=== PATIENT | female | born 1960 | race Caucasian/White ===

== ENCOUNTER 2016-06-02 21:17 | Emergency (ER) | payer BC ==
[~2016-06-02] VITALS: Ht 170.2 cm; Wt 55.0 kg
[2016-06-02 21:20] VITALS: BP 113/77; PULSE 56; RESP 20; TEMP 98.4; O2SAT 97
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
[2016-06-02] MEDS ORDERED: SODIUM CHLOR 0.9% 1000 ML INJ 1,000 ML IV ONE (22:00)
[2016-06-02] MEDS ORDERED: MORPHINE SULFATE 4 MG/ML INJ IV PUSH ONE (22:00)
[2016-06-02] MEDS ORDERED: ONDANSETRON HCL 4 MG/2 ML VIAL IV ONE (22:00)
[2016-06-02] MEDS ORDERED: PROPOFOL 500 MG/50 ML INJ 50 ML ONE (22:03)
[2016-06-02 22:14] VITALS: O2SAT 96; O2SAT 98
[2016-06-02] MEDS ORDERED: PROPOFOL 200 MG/20 ML AMP IV ONE (22:15)
[2016-06-02 22:20] VITALS: BP 118/67; PULSE 71; RESP 18; O2SAT 99
[2016-06-02 22:20] LABS: AUTOMATED NEUTROPHIL # 6.3 TH/MM3 (1.8-7.7); BASOPHIL % 0.5 % (0.0-2.0); EOSINOPHIL # 0.1 TH/MM3 (0-0.4); EOSINOPHIL % 0.7 % (0.0-4.0); HEMATOCRIT 37.4 % (35.0-46.0); HEMO FLAGS DIFF FINAL; LYMPH % 12.5 % (9.0-44.0); MEAN CELL VOLUME 92.8 FL (80.0-100.0); MEAN CORPUSCULAR HEMOGLOBIN 30.2 PG (27.0-34.0); MEAN CORPUSCULAR HGB CONC 32.6 % (32.0-36.0); MONO % 3.9 % (0.0-8.0); NEUT % 82.4 % (16.0-70.0); PLATELET COUNT 263 TH/MM3 (150-450); RED BLOOD COUNT 4.03 MIL/MM3 (4.00-5.30); RED CELL DISTRIBUTION WIDTH 13.5 % (11.6-17.2); WHITE BLOOD COUNT 7.6 TH/MM3 (4.0-11.0)
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
[2016-06-02 22:36] LABS: BICARBONATE 28.5 MEQ/L (21.0-32.0); POTASSIUM 4.4 MEQ/L (3.5-5.1)
[2016-06-02 22:46] VITALS: BP 129/69; PULSE 63; RESP 18; O2SAT 96
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
[2016-06-02] MEDS ORDERED: NAPR1TAB34 PO (22:58)
[2016-06-02 23:19] VITALS: BP 110/78
== END 2016-06-02 23:56 | disposition home or self-care (01) ==
LOC: NEPC 21:17
DX: S43.014A Anterior dislocation of right humerus, initial encounter (principal); V18.0XXA Pedal cycle driver injured in noncollision transport accident in nontraffic accident, initial encounter; Y93.55 Activity, bike riding; Y92.9 Unspecified place or not applicable; Y99.9 Unspecified external cause status
CPT/HCPCS: 23650; 73030; 80048; 85025; 96361; 96374; 96375; 99152; 99283; J2270; J2405; J7030

== ENCOUNTER 2016-06-05 08:34 | Emergency (ER) | payer BC ==
[~2016-06-05] VITALS: Ht 172.7 cm; Wt 70.2 kg
[~2016-06-05 08:34] MED LIST: NAPR1TAB34 PO
[2016-06-05 08:49] VITALS: BP 133/73; PULSE 51; RESP 16; TEMP 99.2; O2SAT 98
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
[2016-06-05] MEDS ORDERED: PROPOFOL 200 MG/20 ML AMP IV ONE (09:45)
[2016-06-05] MEDS ORDERED: SODIUM CHLOR 0.9% 1000 ML INJ 1,000 ML IV ONE (10:00)
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
[2016-06-05 10:30] VITALS: O2SAT 100
[2016-06-05 11:22] VITALS: BP 118/68; PULSE 59; RESP 17; O2SAT 99
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
--- NOTE | 2016-06-05 11:47 | PD ---
Data Data Last Documented VS Vital Signs Date Time Temp Pulse Resp B/P Pulse Ox O2 Delivery O2 Flow Rate FiO2 06/05/16 10:30 100 06/05/16 08:49 99.2 51 16 133/73 Orders Shoulder, Limited(2vws) (06/05/16 ) Propofol 200 Mg/20 Ml Inj (Diprivan 200 (06/05/16 09:45) Sodium Chlor 0.9% 1000 Ml Inj (Ns 1000 M (06/05/16 10:00) Shoulder, Limited(2vws) (06/05/16 ) MDM Medical Record Reviewed: Yes Supervised Visit with GREGG: No Procedures Procedure Narrative 56-year-old female with a right anterior shoulder dislocation. The glenoid fossa is palpable in the humeral head was displaced inferiorly on my exam. The distal pulse was 2+ at the radial artery. After the patient was adequately sedated, a traction countertraction technique was employed with gentle superior pressure in the region of the humeral head which prompted an easy reduction. Neuro vasculature intact following the reduction. Please refer to Dr Lundy's note. Risks/benefits discussed. Procedure: CLOSED REDUCTION OF DISLOCATION OF R SHOULDER Diagnosis Primary Impression: Dislocation of right shoulder joint Qualified Code: S43.004D - Dislocation of right shoulder joint, subsequent encounter Referrals: Orthopaedic Surgeon call for appointment Primary Care Physician call for appointment Patient Instructions: General Instructions, Shoulder Dislocation (ED), How to Use a Sling (GEN), Moderate Sedation (ED) Departure Forms: Tests/Procedures Additional Instruction: return as needed, follow with ortho this week, keep in sling Disposition: 01 DISCHARGE HOME Condition: Stable Kennedy Quintana MD Jun 05, 2016 11:46
== END 2016-06-05 11:50 | disposition home or self-care (01) ==
LOC: PHED 08:34
DX: S43.004D Unspecified dislocation of right shoulder joint, subsequent encounter (principal); X50.1XXD Overexertion from prolonged static or awkward postures, subsequent encounter; Y93.89 Activity, other specified; Y92.003 Bedroom of unspecified non-institutional (private) residence as the place of occurrence of the external cause
CPT/HCPCS: 23650; 73030; 94770; 96360; 99156; 99283; J7030

== ENCOUNTER 2016-06-07 16:20 | Emergency (ER) | payer BC ==
[~2016-06-07] VITALS: Ht 170.2 cm; Wt 69.5 kg
[2016-06-07 16:24] VITALS: BP 125/84; PULSE 58; RESP 16; TEMP 98.2; O2SAT 97
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
[2016-06-07] MEDS ORDERED: HYDROmorphone HCL PF 1 MG/ML VIAL IV PUSH ONE (16:45)
[2016-06-07] MEDS ORDERED: ONDANSETRON HCL 4 MG/2 ML VIAL IV PUSH ONE (16:45)
[2016-06-07 17:15] VITALS: O2SAT 99
[2016-06-07] MEDS ORDERED: PROPOFOL 200 MG/20 ML AMP IV ONE (17:15)
--- NOTE | 2016-06-07 17:52 | RADHPO ---
EXAM DATE/TIME: 06/07/2016 17:40 [facility] COMPARISON: SHOULDER RIGHT LTD (2VWS), June 05, 2016, 10:52. INDICATIONS : Post reduction right shoulder. MEDICAL HISTORY : Chronic right shoulder dislocation SURGICAL HISTORY : section. ENCOUNTER: [facility] ACUITY: 1 day PAIN SCORE: 3/10 LOCATION: Right upper extremity FINDINGS: The humeral head is quite high riding suggesting rotator cuff tear. There is no acute fracture. The limited portions of lung apex are clear. The ribs are intact. CONCLUSION: 1. The humeral head is quite high riding suggesting rotator cuff tear. No acute fractures identified. Kennedy Borja MD on June 07, 2016 at 17:49 Board Certified Radiologist. This report was verified electronically.
== END 2016-06-07 18:20 | disposition home or self-care (01) ==
LOC: PHED 16:20
DX: S43.004A Unspecified dislocation of right shoulder joint, initial encounter (principal); X58.XXXA Exposure to other specified factors, initial encounter; Y93.89 Activity, other specified; Y92.003 Bedroom of unspecified non-institutional (private) residence as the place of occurrence of the external cause; Y99.8 Other external cause status
CPT/HCPCS: 23650; 73030; 96374; 96375; 99283; J1170; J2405